=== PATIENT | female | born 1950 | race African-American/Black ===

== ENCOUNTER 2017-12-02 18:16 | Inpatient (IN) | payer MEDICARE ==
[~2017-12-02] VITALS: Ht 160 cm; Wt 81.2 kg
[2017-12-02] MEDS ORDERED: NITROGLYCERIN OINT 1GM/INCH UDPKT TD STA (18:34)
[2017-12-02] MEDS ORDERED: CLONIDINE 0.2MG TABLET PO ONE (18:45)
[2017-12-02 19:15] LABS: BASOPHILS % 0.6 % (0.0-2.0); EOSINOPHILS % 0.2 % (0.0-5.0); HEMATOCRIT. 47.8 % (36.0-48.0); HEMOGLOBIN. 15.6 g/dL (12.0-16.0); LYMPHOCYTES % 26.6 % (20.0-50.0); MEAN CORPUSCULAR HEMOGLOBIN 25.4 pg (28.0-32.0); MEAN CORPUSCULAR VOLUME 77.9 fL (81.0-99.0); MEAN PLATELET VOLUME 9.3 fl (7.4-10.4); NEUTROPHILS % 67.6 % (40.0-76.0); PLATELET 239 x1000/uL (130-400); RED BLOOD CELL COUNT 6.13 mill/uL (4.2-5.4); RED CELL DISTRIBUTION WIDTH 14.7 % (11.6-14.6)
[2017-12-02 19:20] LABS: PARTIAL THROMBOPLASTIN TIME 27.5 sec (23.4-31.0); PROTHROMBIN TIME 10.5 sec (9.4-11.6)
[2017-12-02 19:24] LABS: CHLORIDE 98 mEq/L (98-107)
[2017-12-02 19:33] LABS: LDL CHOLESTEROL 150 mg/dL (5-100)
[2017-12-02 19:34] LABS: CREATINE KINASE 47 IU/L (26-192); HDL CHOLESTEROL 32 mg/dL (40-59)
[2017-12-02] MEDS ORDERED: INSULIN REGULAR (HUMULIN R) 300UNITS/3ML SUBCUT ONE (20:15)
[2017-12-02] MEDS ORDERED: HYDRALAZINE 20MG/ML VIAL IV ONE (20:15)
[2017-12-02 20:26] LABS: *BARBITURATES SCREEN URINE NEGATIVE (NEGATIVE); *BENZODIAZEPINES SCREEN URINE NEGATIVE (NEGATIVE)
[2017-12-02 20:28] LABS: *AMPHETAMINES SCREEN URINE NEGATIVE (NEGATIVE); *COCAINE SCREEN URINE NEGATIVE (NEGATIVE); CANNABINOID URINE SCREEN NEGATIVE (NEGATIVE); METHADONE URINE SCREEN NEGATIVE (NEGATIVE); OPIATES URINE SCREEN NEGATIVE (NEGATIVE); PHENCYCLIDINE URINE SCREEN NEGATIVE (NEGATIVE)
[2017-12-02 22:40] VITALS: BP 159/85
[2017-12-02 23:07] VITALS: BP 159/85
[2017-12-03] VITALS (7 sets, daily range): BP systolic 111–193; BP diastolic 68–118
[2017-12-03] MEDS ORDERED: DEXTROSE 50% WATER 50ML SYRINGE IV PRN (03:00)
[2017-12-03 03:37] LABS: BASOPHILS % 1.2 % (0.0-2.0); EOSINOPHILS % 0.8 % (0.0-5.0); HEMATOCRIT. 40.8 % (36.0-48.0); HEMOGLOBIN. 13.5 g/dL (12.0-16.0); LYMPHOCYTES % 39.2 % (20.0-50.0); MEAN CORPUSCULAR HEMOGLOBIN 25.6 pg (28.0-32.0); MEAN CORPUSCULAR VOLUME 77.4 fL (81.0-99.0); MEAN PLATELET VOLUME 9.2 fl (7.4-10.4); MONOCYTES % 6.3 % (2.0-8.0); NEUTROPHILS % 52.5 % (40.0-76.0); PLATELET 206 x1000/uL (130-400); RED BLOOD CELL COUNT 5.27 mill/uL (4.2-5.4); RED CELL DISTRIBUTION WIDTH 14.9 % (11.6-14.6)
[2017-12-03 03:51] LABS: CHLORIDE 101 mEq/L (98-107)
[2017-12-03 03:57] LABS: PHOSPHORUS 2.9 mg/dL (2.5-4.9)
[2017-12-03 03:58] LABS: LDL CHOLESTEROL 127 mg/dL (5-100)
[2017-12-03 03:59] LABS: HDL CHOLESTEROL 28 mg/dL (40-59)
[2017-12-03 04:00] LABS: TOTAL IRON BINDING CAPACITY 263 ug/dL (250-450)
[2017-12-03 04:02] LABS: T4 FREE 1.09 ng/dL (0.76-1.46)
[2017-12-03 04:05] LABS: CLARITY URINE CLEAR (CLEAR); COLOR URINE YELLOW (YELLOW); KETONES URINE TRACE (NEGATIVE); LEUKOCYTE ESTERASE URINE NEGATIVE (NEGATIVE); NITRITE URINE NEGATIVE (NEGATIVE); OCCULT BLOOD URINE NEGATIVE (NEGATIVE); PROTEIN URINE NEGATIVE (NEGATIVE); SPECIFIC GRAVITY URINE 1.037 (1.005-1.030); UROBILINOGEN URINE 0.2 E.U./dL (0.2-1.0)
[2017-12-03] MEDS: POTASSIUM BICARB/CIT ACID 25 MEQ TABLET.EFF PO SCH ×3 (04:47→16:26)
[2017-12-03] MEDS: BLOOD SUGAR DIAGNOSTIC STRIP TEST SCH ×4 (06:52→21:18)
[2017-12-03] MEDS: INSULIN LISPRO 100 UNITS/ML SUBCUT SCH ×5 (06:52→21:30)
[2017-12-03] MEDS: ISOSORB DINIT/HYDRALAZINE HCL 20/37.5MG TABLET PO SCH ×3 (11:09→21:17)
[2017-12-03] MEDS: LOSARTAN POTASSIUM 50 MG TABLET PO SCH ×2 (11:09→21:17)
[2017-12-03] MEDS: AMLODIPINE 10MG TABLET PO SCH (11:09)
[2017-12-03] MEDS: ACETAMINOPHEN 325MG TABLET PO PRN (16:27)
[2017-12-03] MEDS: ATORVASTATIN CALCIUM 10MG TABLET PO SCH (21:18)
[2017-12-03] MEDS ORDERED: INSULIN GLARGINE UD 100 UNITS/ML SYR SUBCUT SCH (22:00)
[2017-12-04] VITALS: BP 156/84
[2017-12-04] MEDS: INSULIN LISPRO 100 UNITS/ML SUBCUT SCH ×8 (00:30→21:27)
[2017-12-04 04:00] VITALS: BP 170/80
[2017-12-04] MEDS: BLOOD SUGAR DIAGNOSTIC STRIP TEST SCH ×4 (06:22→21:00)
[2017-12-04] MEDS: ISOSORB DINIT/HYDRALAZINE HCL 20/37.5MG TABLET PO SCH ×3 (06:46→22:27)
[2017-12-04 08:00] VITALS: BP_SYST 148; BP_SYST 151; BP_SYST 152; BP_DIAS 67; BP_DIAS 74
[2017-12-04] MEDS: POTASSIUM BICARB/CIT ACID 25 MEQ TABLET.EFF PO SCH ×2 (08:45→18:13)
[2017-12-04] MEDS: LOSARTAN POTASSIUM 50 MG TABLET PO SCH ×2 (08:46→21:28)
[2017-12-04] MEDS: AMLODIPINE 10MG TABLET PO SCH (08:46)
[2017-12-04 12:03] VITALS: BP_SYST 134; BP_SYST 142; BP_SYST 146; BP_DIAS 75; BP_DIAS 79; BP_DIAS 83
[2017-12-04 16:35] VITALS: BP_SYST 150; BP_SYST 158; BP_DIAS 72; BP_DIAS 81; BP_DIAS 84
[2017-12-04 20:00] VITALS: BP_SYST 153; BP_SYST 156; BP_SYST 170; BP_DIAS 85; BP_DIAS 86
[2017-12-04] MEDS: ATORVASTATIN CALCIUM 10MG TABLET PO SCH (21:28)
[2017-12-04] MEDS: INSULIN GLARGINE UD 100 UNITS/ML SYR SUBCUT SCH (22:32)
[2017-12-05] VITALS: BP 158/64
[2017-12-05 04:00] VITALS: BP 179/99
[2017-12-05 05:46] LABS: BASOPHILS % 0.6 % (0.0-2.0); EOSINOPHILS % 0.5 % (0.0-5.0); HEMATOCRIT. 41.7 % (36.0-48.0); HEMOGLOBIN. 13.7 g/dL (12.0-16.0); LYMPHOCYTES % 29.4 % (20.0-50.0); MEAN CORPUSCULAR HEMOGLOBIN 25.7 pg (28.0-32.0); MEAN CORPUSCULAR VOLUME 77.9 fL (81.0-99.0); MEAN PLATELET VOLUME 9.3 fl (7.4-10.4); MONOCYTES % 8.3 % (2.0-8.0); NEUTROPHILS % 61.2 % (40.0-76.0); PLATELET 250 x1000/uL (130-400); RED BLOOD CELL COUNT 5.35 mill/uL (4.2-5.4); RED CELL DISTRIBUTION WIDTH 14.8 % (11.6-14.6)
[2017-12-05] MEDS: BLOOD SUGAR DIAGNOSTIC STRIP TEST SCH ×4 (06:16→21:00)
[2017-12-05 06:17] LABS: CHLORIDE 101 mEq/L (98-107)
[2017-12-05 06:24] LABS: PHOSPHORUS 3.2 mg/dL (2.5-4.9)
[2017-12-05] MEDS: ISOSORB DINIT/HYDRALAZINE HCL 20/37.5MG TABLET PO SCH ×3 (06:30→21:51)
[2017-12-05] MEDS: INSULIN LISPRO 100 UNITS/ML SUBCUT SCH ×7 (06:56→21:58)
[2017-12-05 07:03] LABS: VITAMIN B12 SERUM 763 pg/mL (211-911)
[2017-12-05] MEDS: ACETAMINOPHEN 325MG TABLET PO PRN (07:37)
[2017-12-05 08:00] VITALS: BP 139/79
[2017-12-05] MEDS: POTASSIUM BICARB/CIT ACID 25 MEQ TABLET.EFF PO SCH ×2 (08:57→17:00)
[2017-12-05] MEDS: AMLODIPINE 10MG TABLET PO SCH (08:57)
[2017-12-05] MEDS: LOSARTAN POTASSIUM 50 MG TABLET PO SCH ×2 (08:57→21:51)
[2017-12-05 12:00] VITALS: BP 152/93
[2017-12-05 16:00] VITALS: BP 178/91
[2017-12-05 20:00] VITALS: BP 158/74
[2017-12-05] MEDS: ATORVASTATIN CALCIUM 10MG TABLET PO SCH (21:51)
[2017-12-05] MEDS: INSULIN GLARGINE UD 100 UNITS/ML SYR SUBCUT SCH (21:58)
[2017-12-06] VITALS: BP 180/79
[2017-12-06] MEDS ORDERED: LEVOFLOXACIN 500MG TABLET PO SCH (01:14)
[2017-12-06 04:00] VITALS: BP 160/66
[2017-12-06] MEDS: ISOSORB DINIT/HYDRALAZINE HCL 20/37.5MG TABLET PO SCH (06:38)
[2017-12-06] MEDS: BLOOD SUGAR DIAGNOSTIC STRIP TEST SCH ×2 (06:38→11:45)
[2017-12-06] MEDS: INSULIN LISPRO 100 UNITS/ML SUBCUT SCH ×4 (06:41→12:44)
[2017-12-06] MEDS: AMLODIPINE 10MG TABLET PO SCH (08:59)
[2017-12-06] MEDS: POTASSIUM BICARB/CIT ACID 25 MEQ TABLET.EFF PO SCH (08:59)
[2017-12-06] MEDS ORDERED: SPIRONOLACTONE 50MG TABLET PO SCH (09:00)
[2017-12-06] MEDS: LOSARTAN POTASSIUM 50 MG TABLET PO SCH (09:00)
[2017-12-06 11:46] VITALS: BP 138/74
[2017-12-08 13:12] LABS: 25-HYDROXY VITAMIN D3 12 ng/mL (.)
== END 2017-12-06 13:18 | disposition home or self-care (01) | DRG 78 ==
LOC: ER 18:16 → 5WST 21:07 → EDBEDREQ 21:11 → EDBEDREQTM 21:11 → ENRESERV 21:17
PROVIDERS: ADMIT Internal Medicine; ATTEND Internal Medicine
DX: I67.4 Hypertensive encephalopathy (principal); N39.0 Urinary tract infection, site not specified; I16.9 Hypertensive crisis, unspecified; I11.9 Hypertensive heart disease without heart failure; N28.9 Disorder of kidney and ureter, unspecified; E11.65 Type 2 diabetes mellitus with hyperglycemia; G47.00 Insomnia, unspecified; H53.8 Other visual disturbances; R63.2 Polyphagia; R35.0 Frequency of micturition; Z79.899 Other long term (current) drug therapy; Z79.1 Long term (current) use of non-steroidal anti-inflammatories (NSAID); Z83.3 Family history of diabetes mellitus; Z82.3 Family history of stroke
CPT/HCPCS: 36415; 70450; 71045; 76700; 76856; 80053; 80061; 80076; 80305; 81003; 82010; 82270; 82306; 82550; 82607; 82962; 83036; 83540; 83550; 83605; 83690; 83735; 83880; 84100; 84439; 84443; 84481; 84484; 84550; 85025; 85610; 85651; 85730; 87040; 87077; 87086; 87186; 93005; 93970; 96372; 99285; J1815

== ENCOUNTER → 2018-02-27 | Outpatient (CLI) | payer MEDICARE | END | disposition home or self-care (01) | LOC: NM 07:17 | PROVIDERS: ATTEND Internal Medicine | DX: E04.1 Nontoxic single thyroid nodule (principal) | CPT/HCPCS: 78014; A9516 ==

== ENCOUNTER 2023-10-04 15:06 | Emergency (ER) | payer MEDICARE ==
[~2023-10-04] VITALS: Ht 160 cm; Wt 82.0 kg
[2023-10-04 15:10] VITALS: TEMP 98; O2SAT 98
[2023-10-04] MEDS: NA PHOS,M-B/NA PHOS,DI-BA ENEMA 118ML PR ONE (16:45)
[2023-10-04] MEDS: KETOROLAC 30MG/ML VIAL IM ONE (17:30)
[2023-10-04 17:59] LABS: BASOPHILS % 0.9 % (0.0-2.0); EOSINOPHILS % 0.1 % (0.0-5.0); HEMATOCRIT. 45.8 % (36.0-48.0); HEMOGLOBIN. 15.2 g/dL (12.0-16.0); LYMPHOCYTES % 28.9 % (20.0-50.0); MEAN CORPUSCULAR HEMOGLOBIN 27.8 pg (28.0-32.0); MEAN CORPUSCULAR HGB CONC 33.2 g/dL (31.0-37.0); MEAN CORPUSCULAR VOLUME 83.7 fL (81.0-99.0); MONOCYTES % 8.1 % (2.0-8.0); PLATELET 217 x1000/uL (130-400); RED BLOOD CELL COUNT 5.47 mill/uL (4.2-5.4); WHITE BLOOD COUNT 8.2 x1000/uL (4.5-11.0)
[2023-10-04 18:04] LABS: CHLORIDE 108 mEq/L (98-107); POTASSIUM 2.9 mEq/L (3.5-5.1); SODIUM 140 mEq/L (136-145)
[2023-10-04 18:05] LABS: CALCIUM 9.8 mg/dL (8.7-10.4); CARBON DIOXIDE 21 mEq/L (21-32)
[2023-10-04 18:10] LABS: CREATININE 0.9 mg/dL (0.6-1.0); GLUCOSE 111 mg/dL (70-105); INR 1.1; PROTHROMBIN TIME 11.7 sec (9.6-11.0); UREA NITROGEN BLOOD 11 mg/dL (9-23)
[2023-10-04 18:12] LABS: LACTIC ACID 2.8 mmol/L (0.4-2.0)
[2023-10-04 18:18] LABS: ALANINE AMINOTRANSFERASE < 7 IU/L (10-49); ALBUMIN 4.5 g/dL (3.2-4.8); ASPARTATE AMINOTRANSFERASE 10 IU/L (<34); BILIRUBIN TOTAL 1.3 mg/dL (0.1-1.0); PROTEIN TOTAL 7.8 g/dL (6.0-8.3)
[2023-10-04] MEDS: POTASSIUM CHLORIDE 20MEQ TABLET SR PO ONE (19:15)
[2023-10-04] MEDS: POTASSIUM CHLORIDE 20 MEQ in SODIUM CHLORIDE 0.9% 1,000 ML IV ONE (20:44)
[2023-10-04] MEDS: SODIUM CHL 0.9% + KCL 20MEQ/L 1,000 ML IV SCH (21:23)
[2023-10-04 21:43] LABS: CLARITY URINE CLOUDY (CLEAR); COLOR URINE DARK YELLOW (YELLOW); GLUCOSE URINE NEGATIVE (NEGATIVE); KETONES URINE 1+ (NEGATIVE); LEUKOCYTE ESTERASE URINE TRACE (NEGATIVE); NITRITE URINE NEGATIVE (NEGATIVE); OCCULT BLOOD URINE NEGATIVE (NEGATIVE); PH URINE 5.5 (4.5-8.0); PROTEIN URINE TRACE (NEGATIVE); SPECIFIC GRAVITY URINE 1.016 (1.005-1.030)
[2023-10-04 22:19] LABS: BACTERIA URINE 2+; RBC URINE NONE SEEN /hpf (0-2); SQUAMOUS EPITHELIAL CELL URINE 2+ /lpf (RARE/1+)
[2023-10-04 22:20] LABS: WBC URINE 0-2 /hpf (0-2)
[2023-10-04 23:00] LABS: CHLORIDE 110 mEq/L (98-107); POTASSIUM 3.3 mEq/L (3.5-5.1); SODIUM 142 mEq/L (136-145)
[2023-10-04 23:01] LABS: CARBON DIOXIDE 24 mEq/L (21-32)
[2023-10-04 23:02] LABS: CALCIUM 9.1 mg/dL (8.7-10.4)
[2023-10-04 23:06] LABS: CREATININE 0.9 mg/dL (0.6-1.0); GLUCOSE 135 mg/dL (70-105); UREA NITROGEN BLOOD 10 mg/dL (9-23)
[2023-10-04] MEDS ORDERED: POLY17PO3 MT (23:23)
[2023-10-05 00:34] VITALS: BP 134/61; PULSE 57; RESP 16
== END 2023-10-05 00:36 | disposition home or self-care (01) ==
LOC: ER 15:06
DX: K59.00 Constipation, unspecified (principal); E11.9 Type 2 diabetes mellitus without complications
CPT/HCPCS: 99285; 74176; 96360; 80053; 81003; 83605; 83690; 85025; 85610; 86850; 86900; 86901; 36415; 96372; 80048; J1885; J3480; C1893; J7030